=== PATIENT | female | born 1970 | race American Indian/Alaskan Native ===

== ENCOUNTER 2018-01-27 12:55 | Inpatient (IN) | payer SELFPAY ==
[2018-01-27] MEDS ORDERED: ASPIRIN PO ONE (13:08)
[2018-01-27 13:40] LABS: Basophils % (Auto) 0.3 % (0.0-1.8); Hematocrit 37.2 % (30.3-42.9); Hemoglobin 12.3 gm/dl (10.1-14.3); Lymphocytes # (Auto) 0.9 K/mm3 (1.2-5.4); Lymphocytes % (Auto) 6.7 % (13.4-35.0); Mean Corpuscular HGB Conc 33 % (30-34); Mean Corpuscular Hemoglobin 27 pg (28-32); Mean Corpuscular Volume 80 fl (79-97); Monocytes # (Auto) 0.7 K/mm3 (0.0-0.8); Monocytes % (Auto) 4.9 % (0.0-7.3); Platelet Count 198 K/mm3 (140-440); Red Blood Count 4.66 M/mm3 (3.65-5.03); Red Cell Distribution Width 14.7 % (13.2-15.2)
[2018-01-27 13:52] LABS: BUN/Creatinine Ratio 25; Blood Urea Nitrogen 15 mg/dL (7-17); Calcium 8.4 mg/dL (8.4-10.2); Hemolysis Index 14
[2018-01-27] MEDS ORDERED: NACL 0.9% 1000 ML 1,000 ML IV ONE ×2 (14:28→19:29)
[2018-01-27 15:08] LABS: Creatine Kinase MB < 1.0 ng/mL (0.0-4.0)
[2018-01-27 15:14] LABS: Free T4 (Free Thyroxine) 1.25 ng/dL (0.76-1.46)
--- NOTE | 2018-01-27 15:17 | Cat Scan Report ---
CT HEAD WITHOUT CONTRAST INDICATION: Headache. COMPARISON: None similar at this institution. FINDINGS: Noncontrast head CT demonstrates normal ventricles and sulci without acute or recent infarct, hemorrhage, mass effect or midline shift. No abnormal extra-axial fluid collections. Posterior fossa structures and basilar cisterns appear within normal limits. Symmetric eye globes. Mild left sphenoid sinus mucosal thickening. Clear remainder imaged paranasal sinuses and mastoid air cells. Intact calvarium. Normal overlying scalp soft tissues. Multiple radiopaque dental material incidentally noted. Approximately 2.7 x 1.6 cm nasopharyngeal soft tissues may also be directly visualized. CONCLUSION: No acute intracranial CT abnormality with mild left sphenoid sinus disease, as described. Please correlate. Thank you for the opportunity to participate in this patient's care.
--- NOTE | 2018-01-27 15:49 | Emergency Department Report ---
HPI - General Chief Complaint: Weakness Time Seen by Provider: 01/27/18 14:12 - HPI HPI: Room 26 The patient is a 47-year-old female presents with chief complaint weakness. The patient states this morning at 02:002 week and with nausea and vomiting. States is 05:30 she developed chills and pain in the right upper extremity described as a "hurt" which lasted for hours. The patient states her right thumb, middle finger and index finger became numb as well. At 09:30 the patient states she became diaphoretic and weak. The patient far department for evaluation and found she did not have enough energy to walk. The patient was then transported to the ED. The patient states she still feels weak. Patient denied chest pain or shortness of breath. Patient states she's had a headache for the last 2 days as worsened since last night. Patient states she's never had a stress test or cardiac catheterization. The patient is a headache a score 4/10. ED Past Medical Hx - Past Medical History Hx Diabetes: Yes (BOARDERLINE) - Surgical History Additional Surgical History: GASTRIC SLEEVE - Social History Smoking Status: Never Smoker Substance Use Type: None - Medications Home Medications: Home Medications Medication Instructions Recorded Confirmed Last Taken Type No Known Home Medications [No 01/27/18 01/27/18 Unknown History Reported Home Medications] ED Review of Systems ROS: Stated complaint: WEAK/DIZZY Other details as noted in HPI Physical Exam - Physical Exam Vital Signs: Vital Signs 01/27/18 01/27/18 13:03 14:04 Temperature 98.9 F Pulse Rate 98 H Respiratory 19 12 Rate Blood Pressure 92/63 O2 Sat by Pulse 96 Oximetry ED Course Vital Signs 01/27/18 01/27/18 13:03 14:04 Temperature 98.9 F Pulse Rate 98 H Respiratory 19 12 Rate Blood Pressure 92/63 O2 Sat by Pulse 96 Oximetry ED Medical Decision Making - Lab Data Result diagrams: 01/27/18 13:30 01/27/18 13:30 - Radiology Data Radiology results: report reviewed (CT head), image reviewed (CT head, chest x- ray) interpreted by me: Chest x-ray-no focal infiltrates, no pneumothorax [facility] [address] [place] [address] Cat Scan Report Signed Patient: JUVENAL LOREDO MR#: [id number] : 1970 Acct:[id number] Age/Sex: 47 / F ADM Date: 01/27/18 Loc: ED Attending Dr: Ordering Physician: PAULINE ARAMBULA MD Date of Service: 01/27/18 Procedure(s): CT head/brain wo con Accession Number(s): [id number] cc: PAULINE ARAMBULA MD CT HEAD WITHOUT CONTRAST INDICATION: Headache. COMPARISON: None similar at this institution. FINDINGS: Noncontrast head CT demonstrates normal ventricles and sulci without acute or recent infarct, hemorrhage, mass effect or midline shift. No abnormal extra-axial fluid collections. Posterior fossa structures and basilar cisterns appear within normal limits. Symmetric eye globes. Mild left sphenoid sinus mucosal thickening. Clear remainder imaged paranasal sinuses and mastoid air cells. Intact calvarium. Normal overlying scalp soft tissues. Multiple radiopaque dental material incidentally noted. Approximately 2.7 x 1.6 cm nasopharyngeal soft tissues may also be directly visualized. CONCLUSION: No acute intracranial CT abnormality with mild left sphenoid sinus disease, as described. Please correlate. Thank you for the opportunity to participate in this patient's care. Transcribed By: RS Dictated By: FLAVIO MULLER MD Electronically Authenticated By: FLAVIO MULLER MD Signed Date/Time: 01/27/18 1511 DD/ 1509 TD/TT: 01/27/18 1511 - Differential Diagnosis anginal equivalent, ACS, hypothyroidism,Electrolyte imbalance, ICH Critical care attestation.: If time is entered above; I have spent that time in minutes in the direct care of this critically ill patient, excluding procedure time. ED Disposition Clinical Impression: Weakness, Equivalent angina Disposition: OP ADMIT IP TO THIS HOSP Is pt being admited?: Yes Does the pt Need Aspirin: Yes Condition: Fair Instructions: Angina (ED) Referrals: PRIMARY CARE, [Primary Care Provider] - 3-5 Days Time of Disposition: 15:55 (hospitalist notified (Dr Ferreira))
[2018-01-27] MEDS ORDERED: NORCO 5/325 PO ONE (15:55)
--- NOTE | 2018-01-27 17:34 | XRay Report ---
FINAL REPORT EXAM: XR CHEST 1V AP HISTORY: equivalent angina TECHNIQUE: Frontal portable examination of the chest PRIORS: None FINDINGS: There is no visible pulmonary consolidation, pleural effusion, or pneumothorax. Cardiac silhouette size is normal without vascular congestion. No visible acute displaced fracture in the regional skeleton. Bilateral shoulder degenerative change. IMPRESSION: No acute cardiopulmonary disease in the visualized chest
--- NOTE | 2018-01-27 21:27 | History and Physical Report ---
History of Present Illness Date of examination: 01/27/18 Date of admission: 01/27/2018 Chief complaint: Chief complaint: Nausea vomiting and right-sided chest pain History of present illness: HARPER: 47-year-old -[place] female with no significant past medical history and possible borderline diabetes comes in for nausea and vomiting since a.m. She developed chills and pain in the right upper extremity. Right upper extremity numbness. Patient became diaphoretic and weak. Patient was hypotensive in the emergency room with a blood pressure about 80/50. Patient vomited about 2 times per morning. Some epigastric discomfort present. Also some diaphoresis. Past Medical History Hx Diabetes: Yes (BORDERLINE) Surgical History Additional Surgical History: GASTRIC SLEEVE Social History Smoking Status: Never Smoker Substance Use Type: None Family history htn Medications Home Medications: Home Medications Medication Instructions Recorded Confirmed Last Taken Type No Known Home Medications [No 01/27/18 01/27/18 Unknown History Reported Home Medications] Medications and Allergies Allergies Allergy/AdvReac Type Severity Reaction Status Date / Time melon Allergy Itching Verified 01/27/18 13:03 ragweed pollen Allergy Itching Verified 01/27/18 13:03 Home Medications Medication Instructions Recorded Confirmed Last Taken Type No Known Home Medications [No 01/27/18 01/27/18 Unknown History Reported Home Medications] Review of Systems All systems: negative Constitutional: no weight loss, no weight gain, no fever, no chills, no sweats, no night sweats Ears, nose, mouth and throat: no sore throat, no swelling in mouth, no swelling in throat, no odynophagia Breasts: deferred Cardiovascular: lightheadedness, no chest pain, no orthopnea, no palpitations, no rapid/irregular heart beat, no edema, no syncope, no shortness of breath, no dyspnea on exertion Respiratory: no cough, no cough with sputum, no excessive sputum, no hemoptysis , no shortness of breath, no dyspnea on exertion Gastrointestinal: nausea, vomiting, no abdominal pain, no diarrhea, no constipation, no change in bowel habits, no hematemesis, no coffee ground emesis , no BRBPR, no melena, no hematochezia, no loss of appetite, no early satiety, no heartburn, no indigestion, no belching, no excessive gas, no jaundice, no dyspepsia/bloating, no early satiety, no lactose intolerance, no other Genitourinary Female: no menorrhagia, no dysuria, no urinary frequency, no urgency, no stress incontinence, no post void dribbling Rectal: no pain Musculoskeletal: no neck stiffness, no neck pain, no shooting arm pain, no arm numbness/tingling, no low back pain, no shooting leg pain, no leg numbness/ tingling, no redness of joints Integumentary: no rash, no pruritis, no redness, no sores, no wounds, no jaundice, no boils, no blisters Neurological: no seizures, no syncope Psychiatric: no anxiety, no memory loss, no change in sleep habits, no sleep disturbances, no insomnia, no hypersomnia, no change in appetite, no change in libido, no suicidal ideation, no disorientation, no hallucinations Endocrine: no cold intolerance, no heat intolerance, no polyphagia, no excessive thirst, no polydipsia, no polyuria, no nocturia Hematologic/Lymphatic: no easy bruising, no easy bleeding Allergic/Immunologic: no urticaria, no allergic rhinitis, no wheezing Exam - Physical Exam Narrative exam: Lying in bed comfortably - Constitutional Vitals: Temp Pulse Resp BP Pulse Ox 98.9 F 76 13 101/60 100 01/27/18 13:03 01/27/18 20:30 01/27/18 20:30 01/27/18 20:30 01/27/18 20:30 General appearance: Present: no acute distress, well-nourished - EENT Eyes: Present: PERRL ENT: hearing intact, clear oral mucosa - Neck Neck: Present: supple, normal ROM - Respiratory Respiratory effort: normal Respiratory: bilateral: CTA - Cardiovascular Heart rate: 80 Rhythm: regular Heart Sounds: Present: S1 & S2. Absent: rub, click - Extremities Extremities: no ischemia, pulses intact, pulses symmetrical, No edema Peripheral Pulses: within normal limits - Abdominal General gastrointestinal: Present: soft, non-tender, non-distended, normal bowel sounds Female genitourinary: Present: normal - Integumentary Integumentary: Present: clear, warm, dry - Musculoskeletal Musculoskeletal: gait normal, strength equal bilaterally - Psychiatric Psychiatric: appropriate mood/affect, intact judgment & insight - Neurologic Neurologic: CNII-XII intact, moves all extremities - Allied Health Allied health notes reviewed: nursing, case management Results - Labs CBC & Chem 7: 01/27/18 13:30 01/27/18 13:30 Labs: Laboratory Last Values WBC 13.5 K/mm3 (4.5-11.0) H 01/27/18 13:30 RBC 4.66 M/mm3 (3.65-5.03) 01/27/18 13:30 Hgb 12.3 gm/dl (10.1-14.3) 01/27/18 13:30 Hct 37.2 % (30.3-42.9) 01/27/18 13:30 MCV 80 fl (79-97) 01/27/18 13:30 MCH 27 pg (28-32) L 01/27/18 13:30 MCHC 33 % (30-34) 01/27/18 13:30 RDW 14.7 % (13.2-15.2) 01/27/18 13:30 Plt Count 198 K/mm3 (140-440) 01/27/18 13:30 Lymph % (Auto) 6.7 % (13.4-35.0) L 01/27/18 13:30 [place] % (Auto) 4.9 % (0.0-7.3) 01/27/18 13:30 Eos % (Auto) 0.0 % (0.0-4.3) 01/27/18 13:30 Baso % (Auto) 0.3 % (0.0-1.8) 01/27/18 13:30 Lymph # 0.9 K/mm3 (1.2-5.4) L 01/27/18 13:30 [place] # 0.7 K/mm3 (0.0-0.8) 01/27/18 13:30 Eos # 0.0 K/mm3 (0.0-0.4) 01/27/18 13:30 Baso # 0.0 K/mm3 (0.0-0.1) 01/27/18 13:30 Seg Neutrophils % 88.1 % (40.0-70.0) H 01/27/18 13:30 Seg Neutrophils # 11.9 K/mm3 (1.8-7.7) H 01/27/18 13:30 Sodium 139 mmol/L (137-145) 01/27/18 13:30 Potassium 3.7 mmol/L (3.6-5.0) 01/27/18 13:30 Chloride 102.1 mmol/L (98-107) 01/27/18 13:30 Carbon Dioxide 24 mmol/L (22-30) 01/27/18 13:30 Anion Gap 17 mmol/L 01/27/18 13:30 BUN 15 mg/dL (7-17) 01/27/18 13:30 Creatinine 0.6 mg/dL (0.7-1.2) L 01/27/18 13:30 Estimated GFR > 60 ml/min 01/27/18 13:30 BUN/Creatinine Ratio 25 % 01/27/18 13:30 Glucose 153 mg/dL (65-100) H 01/27/18 13:30 Calcium 8.4 mg/dL (8.4-10.2) 01/27/18 13:30 Total Creatine Kinase 55 units/L (30-135) 01/27/18 14:36 CK-MB (CK-2) < 1.0 ng/mL (0.0-4.0) 01/27/18 14:36 CK-MB (CK-2) Rel Index 1.8 (0-4) 01/27/18 14:36 Troponin T < 0.010 ng/mL (0.00-0.029) 01/27/18 18:51 TSH 0.720 mlU/mL (0.270-4.200) 01/27/18 14:36 Free T4 1.25 ng/dL (0.76-1.46) 01/27/18 14:36 - Imaging and Cardiology EKG: report reviewed (normal sinus rhythm. ) CT Scan - head: report reviewed (no acute findings) Imaging and Cardiology: Chest x-ray: FINDINGS: There is no visible pulmonary consolidation, pleural effusion, or pneumothorax. Cardiac silhouette size is normal without vascular congestion. No visible acute displaced fracture in the regional skeleton. Bilateral shoulder degenerative change. IMPRESSION: No acute cardiopulmonary disease in the visualized chest Assessment and Plan Advance Directives: Yes (full code) VTE prophylaxis?: Chemical Plan of care discussed with patient/family: Yes - Patient Problems (1) Hypotension Current Visit: Yes Status: Acute Qualifiers: Hypotension type: unspecified hypotension type Qualified Code(s): I95.9 - Hypotension, unspecified Plan to address problem: Hypertension probably secondary to volume loss because of acute gastritis IV fluids for now (2) Acute gastritis Current Visit: Yes Status: Acute Qualifiers: Gastritis type: unspecified gastritis Plan to address problem: IV Protonix for now (3) Equivalent angina Current Visit: Yes Status: Acute Plan to address problem: Troponin and Lexiscan in the morning (4) DVT prophylaxis Current Visit: Yes Status: Acute Plan to address problem: Heparin
[2018-01-27] MEDS ORDERED: SODIUM CHLORIDE FLUSH SYRINGE 10 ML IV PRN (21:31)
[2018-01-27] MEDS ORDERED: TYLENOL PO PRN (21:31)
[2018-01-27] MEDS ORDERED: MOTRIN PO PRN (21:31)
[2018-01-27] MEDS ORDERED: MORPHINE IV PRN (21:31)
[2018-01-27] MEDS ORDERED: REGLAN IV PRN (21:31)
[2018-01-27] MEDS ORDERED: ZOFRAN IV PRN (21:31)
[2018-01-27 21:36] LABS: Bilirubin,Urine NEG (Negative); Blood,Urine NEG (Negative); Color,Urine Yellow (Yellow); Mucus,Urine FEW /HPF; Protein,Urine <15 mg/dL mg/dL (Negative); Urobilinogen,Urine < 2.0 mg/dL (<2.0)
[2018-01-27] MEDS ORDERED: TYLENOL ONE ×2 (23:44→23:47)
[2018-01-27] MEDS: PROTONIX IV SCH (23:51)
[2018-01-27] MEDS: SODIUM CHLORIDE FLUSH SYRINGE 10 ML IV SCH (23:51)
[2018-01-28] MEDS ORDERED: HEPARIN ONE (00:29)
[2018-01-28] MEDS: HEPARIN SUB-Q SCH ×3 (00:40→21:18)
[2018-01-28] MEDS: NACL 0.9% 1000 ML 1,000 ML IV SCH ×2 (01:38→12:32)
[2018-01-28 04:27] LABS: Basophils % (Auto) 0.3 % (0.0-1.8); Eosinophils # (Auto) 0.1 K/mm3 (0.0-0.4); Eosinophils % (Auto) 1.1 % (0.0-4.3); Hematocrit 34.9 % (30.3-42.9); Hemoglobin 11.5 gm/dl (10.1-14.3); Lymphocytes # (Auto) 2.8 K/mm3 (1.2-5.4); Lymphocytes % (Auto) 25.4 % (13.4-35.0); Mean Corpuscular HGB Conc 33 % (30-34); Mean Corpuscular Hemoglobin 27 pg (28-32); Mean Corpuscular Volume 81 fl (79-97); Monocytes # (Auto) 0.6 K/mm3 (0.0-0.8); Monocytes % (Auto) 5.4 % (0.0-7.3); Platelet Count 183 K/mm3 (140-440); Red Blood Count 4.33 M/mm3 (3.65-5.03); Red Cell Distribution Width 14.7 % (13.2-15.2)
[2018-01-28 04:53] LABS: Alanine Aminotransferase 15 units/L (7-56); Albumin 2.9 g/dL (3.9-5); BUN/Creatinine Ratio 20; Blood Urea Nitrogen 10 mg/dL (7-17); Calcium 7.6 mg/dL (8.4-10.2); Hemolysis Index 0
[2018-01-28] MEDS ORDERED: LEXISCAN IV ONE ×2 (09:23→09:28)
[2018-01-28] MEDS: PROTONIX IV SCH (10:00)
--- NOTE | 2018-01-28 10:24 | Progress Note ---
<JAM NUÑEZ - Last Filed: 01/28/18 15:17> Assessment and Plan Assessment and plan: Patient is a 47-year-old -Spanish female who was admitted for hypotension, weakness and epigastric discomfort. Hypotension BP has improved, continue IVF, Hypertension probably secondary to volume loss because of acute gastritis Right Arm pain and weakness Upper extremity Doppler ordered Right Knee pain x-ray results are pending Acute gastritis IV Protonix for now Equivalent angina Troponins have been negative, Lexiscan results pending DVT prophylaxis Heparin History Interval history: Patient was seen and examined. She is feeling better compared to yesterday, complains of headache and right knee pain. Labs and nursing notes reviewed. Hospitalist Physical - Constitutional Vitals: Temp Pulse Resp BP Pulse Ox 98.2 F 80 20 91/59 95 01/28/18 07:43 01/28/18 07:43 01/28/18 07:43 01/28/18 07:43 01/28/18 07:43 General appearance: Present: no acute distress, well-nourished - EENT Eyes: Present: PERRL, EOM intact ENT: hearing intact, clear oral mucosa - Neck Neck: Present: supple, normal ROM - Respiratory Respiratory effort: normal Respiratory: bilateral: CTA - Cardiovascular Rhythm: regular Heart Sounds: Present: S1 & S2 - Extremities Extremities: no ischemia, No edema - Abdominal General gastrointestinal: soft, non-tender, non-distended - Integumentary Integumentary: Present: clear, warm, dry - Psychiatric Psychiatric: appropriate mood/affect, intact judgment & insight, cooperative - Neurologic Neurologic: CNII-XII intact, moves all extremities Results - Labs CBC & Chem 7: 01/28/18 03:48 01/28/18 03:48 Labs: Laboratory Last Values WBC 10.9 K/mm3 (4.5-11.0) 01/28/18 03:48 RBC 4.33 M/mm3 (3.65-5.03) 01/28/18 03:48 Hgb 11.5 gm/dl (10.1-14.3) 01/28/18 03:48 Hct 34.9 % (30.3-42.9) 01/28/18 03:48 MCV 81 fl (79-97) 01/28/18 03:48 MCH 27 pg (28-32) L 01/28/18 03:48 MCHC 33 % (30-34) 01/28/18 03:48 RDW 14.7 % (13.2-15.2) 01/28/18 03:48 Plt Count 183 K/mm3 (140-440) 01/28/18 03:48 Lymph % (Auto) 25.4 % (13.4-35.0) 01/28/18 03:48 [place] % (Auto) 5.4 % (0.0-7.3) 01/28/18 03:48 Eos % (Auto) 1.1 % (0.0-4.3) 01/28/18 03:48 Baso % (Auto) 0.3 % (0.0-1.8) 01/28/18 03:48 Lymph # 2.8 K/mm3 (1.2-5.4) 01/28/18 03:48 [place] # 0.6 K/mm3 (0.0-0.8) 01/28/18 03:48 Eos # 0.1 K/mm3 (0.0-0.4) 01/28/18 03:48 Baso # 0.0 K/mm3 (0.0-0.1) 01/28/18 03:48 Seg Neutrophils % 67.8 % (40.0-70.0) 01/28/18 03:48 Seg Neutrophils # 7.4 K/mm3 (1.8-7.7) 01/28/18 03:48 Sodium 140 mmol/L (137-145) 01/28/18 03:48 Potassium 3.8 mmol/L (3.6-5.0) 01/28/18 03:48 Chloride 105.7 mmol/L (98-107) 01/28/18 03:48 Carbon Dioxide 25 mmol/L (22-30) 01/28/18 03:48 Anion Gap 13 mmol/L 01/28/18 03:48 BUN 10 mg/dL (7-17) 01/28/18 03:48 Creatinine 0.5 mg/dL (0.7-1.2) L 01/28/18 03:48 Estimated GFR > 60 ml/min 01/28/18 03:48 BUN/Creatinine Ratio 20 % 01/28/18 03:48 Glucose 85 mg/dL (65-100) 01/28/18 03:48 Hemoglobin A1c 5.8 % (4-6) 01/27/18 21:37 Calcium 7.6 mg/dL (8.4-10.2) L 01/28/18 03:48 Total Bilirubin 0.20 mg/dL (0.1-1.2) 01/28/18 03:48 AST 12 units/L (5-40) 01/28/18 03:48 ALT 15 units/L (7-56) 01/28/18 03:48 Alkaline Phosphatase 44 units/L (35-129) 01/28/18 03:48 Total Creatine Kinase 55 units/L (30-135) 01/27/18 14:36 CK-MB (CK-2) < 1.0 ng/mL (0.0-4.0) 01/27/18 14:36 CK-MB (CK-2) Rel Index 1.8 (0-4) 01/27/18 14:36 Troponin T < 0.010 ng/mL (0.00-0.029) 01/28/18 03:48 Total Protein 5.8 g/dL (6.3-8.2) L 01/28/18 03:48 Albumin 2.9 g/dL (3.9-5) L 01/28/18 03:48 Albumin/Globulin Ratio 1.0 % 01/28/18 03:48 TSH 0.720 mlU/mL (0.270-4.200) 01/27/18 14:36 Free T4 1.25 ng/dL (0.76-1.46) 01/27/18 14:36 Urine Color Yellow (Yellow) 01/27/18 21:20 Urine Turbidity Clear (Clear) 01/27/18 21:20 Urine pH 5.0 (5.0-7.0) 01/27/18 21:20 Ur Specific [place] 1.018 (1.003-1.030) 01/27/18 21:20 Urine Protein <15 mg/dl mg/dL (Negative) 01/27/18 21:20 Urine Glucose (UA) Neg mg/dL (Negative) 01/27/18 21:20 Urine Ketones Neg mg/dL (Negative) 01/27/18 21:20 Urine Blood Neg (Negative) 01/27/18 21:20 Urine Nitrite Neg (Negative) 01/27/18 21:20 Urine Bilirubin Neg (Negative) 01/27/18 21:20 Urine Urobilinogen < 2.0 mg/dL (<2.0) 01/27/18 21:20 Ur Leukocyte Esterase Neg (Negative) 01/27/18 21:20 Urine WBC (Auto) 1.0 /HPF (0.0-6.0) 01/27/18 21:20 Urine RBC (Auto) 3.0 /HPF (0.0-6.0) 01/27/18 21:20 Urine Mucus Few /HPF 01/27/18 21:20 <SUKH NAJERA - Last Filed: 01/28/18 23:05> Assessment and Plan Assessment and plan: I saw and evaluated the patient. I agree with the findings and the plan of care as documented in the PA's~note, with the following corrections and additions. Patient seen and examined, reports improvement. Reports sinus pain. Noted headache rates a 3/10 in intensity. no blurry vision. likely viral syndrome now resolving. will monitor 24 hrs and anticipate discharge in am if clinically stable Hospitalist Physical - Constitutional Vitals: Temp Pulse Resp BP Pulse Ox 98.3 F 87 18 90/54 97 01/28/18 19:57 01/28/18 19:57 01/28/18 19:57 01/28/18 19:57 01/28/18 19:57 Results - Labs CBC & Chem 7: 01/28/18 03:48 01/28/18 03:48 Labs: Laboratory Last Values WBC 10.9 K/mm3 (4.5-11.0) 01/28/18 03:48 RBC 4.33 M/mm3 (3.65-5.03) 01/28/18 03:48 Hgb 11.5 gm/dl (10.1-14.3) 01/28/18 03:48 Hct 34.9 % (30.3-42.9) 01/28/18 03:48 MCV 81 fl (79-97) 01/28/18 03:48 MCH 27 pg (28-32) L 01/28/18 03:48 MCHC 33 % (30-34) 01/28/18 03:48 RDW 14.7 % (13.2-15.2) 01/28/18 03:48 Plt Count 183 K/mm3 (140-440) 01/28/18 03:48 Lymph % (Auto) 25.4 % (13.4-35.0) 01/28/18 03:48 [place] % (Auto) 5.4 % (0.0-7.3) 01/28/18 03:48 Eos % (Auto) 1.1 % (0.0-4.3) 01/28/18 03:48 Baso % (Auto) 0.3 % (0.0-1.8) 01/28/18 03:48 Lymph # 2.8 K/mm3 (1.2-5.4) 01/28/18 03:48 [place] # 0.6 K/mm3 (0.0-0.8) 01/28/18 03:48 Eos # 0.1 K/mm3 (0.0-0.4) 01/28/18 03:48 Baso # 0.0 K/mm3 (0.0-0.1) 01/28/18 03:48 Seg Neutrophils % 67.8 % (40.0-70.0) 01/28/18 03:48 Seg Neutrophils # 7.4 K/mm3 (1.8-7.7) 01/28/18 03:48 Sodium 140 mmol/L (137-145) 01/28/18 03:48 Potassium 3.8 mmol/L (3.6-5.0) 01/28/18 03:48 Chloride 105.7 mmol/L (98-107) 01/28/18 03:48 Carbon Dioxide 25 mmol/L (22-30) 01/28/18 03:48 Anion Gap 13 mmol/L 01/28/18 03:48 BUN 10 mg/dL (7-17) 01/28/18 03:48 Creatinine 0.5 mg/dL (0.7-1.2) L 01/28/18 03:48 Estimated GFR > 60 ml/min 01/28/18 03:48 BUN/Creatinine Ratio 20 % 01/28/18 03:48 Glucose 85 mg/dL (65-100) 01/28/18 03:48 Hemoglobin A1c 5.8 % (4-6) 01/27/18 21:37 Calcium 7.6 mg/dL (8.4-10.2) L 01/28/18 03:48 Total Bilirubin 0.20 mg/dL (0.1-1.2) 01/28/18 03:48 AST 12 units/L (5-40) 01/28/18 03:48 ALT 15 units/L (7-56) 01/28/18 03:48 Alkaline Phosphatase 44 units/L (35-129) 01/28/18 03:48 Total Creatine Kinase 55 units/L (30-135) 01/27/18 14:36 CK-MB (CK-2) < 1.0 ng/mL (0.0-4.0) 01/27/18 14:36 CK-MB (CK-2) Rel Index 1.8 (0-4) 01/27/18 14:36 Troponin T < 0.010 ng/mL (0.00-0.029) 01/28/18 11:12 Total Protein 5.8 g/dL (6.3-8.2) L 01/28/18 03:48 Albumin 2.9 g/dL (3.9-5) L 01/28/18 03:48 Albumin/Globulin Ratio 1.0 % 01/28/18 03:48 TSH 0.720 mlU/mL (0.270-4.200) 01/27/18 14:36 Free T4 1.25 ng/dL (0.76-1.46) 01/27/18 14:36 Urine Color Yellow (Yellow) 01/27/18 21:20 Urine Turbidity Clear (Clear) 01/27/18 21:20 Urine pH 5.0 (5.0-7.0) 01/27/18 21:20 Ur Specific [place] 1.018 (1.003-1.030) 01/27/18 21:20 Urine Protein <15 mg/dl mg/dL (Negative) 01/27/18 21:20 Urine Glucose (UA) Neg mg/dL (Negative) 01/27/18 21:20 Urine Ketones Neg mg/dL (Negative) 01/27/18 21:20 Urine Blood Neg (Negative) 01/27/18 21:20 Urine Nitrite Neg (Negative) 01/27/18 21:20 Urine Bilirubin Neg (Negative) 01/27/18 21:20 Urine Urobilinogen < 2.0 mg/dL (<2.0) 01/27/18 21:20 Ur Leukocyte Esterase Neg (Negative) 01/27/18 21:20 Urine WBC (Auto) 1.0 /HPF (0.0-6.0) 01/27/18 21:20 Urine RBC (Auto) 3.0 /HPF (0.0-6.0) 01/27/18 21:20 Urine Mucus Few /HPF 01/27/18 21:20
[2018-01-28] MEDS: SODIUM CHLORIDE FLUSH SYRINGE 10 ML IV SCH ×2 (12:32→21:19)
[2018-01-28] MEDS: FLONASE NS SCH (17:00)
[2018-01-28] MEDS: PROTONIX PO SCH (21:18)
--- NOTE | 2018-01-28 22:02 | XRay Report ---
FINAL REPORT EXAM: XR KNEE 1-2V RT HISTORY: right knee pain TECHNIQUE: Frontal and lateral views of right knee. PRIORS: None. FINDINGS: Variable degenerative changes in all 3 joint compartments, most pronounced in the medial and patellofemoral joint spaces. Probable small, intra-articular osteocartilaginous body noted in the mid anterior joint compartment. No apparent fracture or dislocation. Soft tissues grossly unremarkable. IMPRESSION: 1. No acute osseous abnormality. 2. Degenerative changes.
--- NOTE | 2018-01-29 08:15 | Discharge Summary ---
Providers - Providers Date of Admission: 01/27/18 21:31 Attending physician: SUKH NAJERA MD 01/28/18 10:25 Consult to Dietitian/Nutrition [CONS] Routine Physician Instructions: Reason For Exam: Reason for Consult: Malnutrition Primary care physician: [employer]ING TECHNICIAN Hospitalization Reason for admission: VIRAL SYNDROM Condition: Stable Hospital course: Patient is a 47-year-old -[place] female who was admitted for hypotension, weakness and epigastric discomfort. Patient reported rapid onset of fever the day prior to admission which has since improved. patient also reported sinus pain which she was started on Flonase with improvement. she had a stress test which was negative and today is stable for discharge with no further symptoms. Hypotension Right Arm pain and weakness Right Knee pain Acute gastritis Atypical chest pain likely costonchdirits Viral syndrom Sinus headache with sinusitis Disposition: TO HOME OR SELFCARE Time spent for discharge: 35 MINS Core Measure Documentation - Palliative Care Palliative Care/ Comfort Measures: Not Applicable - Core Measures Any of the following diagnoses?: none - VTE Discharge Requirements Deep Vein Thrombosis/Pulmonary Embolism Present on Admission: No Exam - Constitutional Vitals: Temp Pulse Resp BP Pulse Ox 97.8 F 80 16 127/74 100 01/29/18 04:48 01/29/18 06:00 01/29/18 04:48 01/29/18 04:48 01/29/18 00:52 General appearance: Present: no acute distress, well-nourished - EENT Eyes: Present: PERRL ENT: hearing intact - Neck Neck: Present: supple, normal ROM - Respiratory Respiratory effort: normal Respiratory: bilateral: CTA - Cardiovascular Rhythm: regular Heart Sounds: Present: S1 & S2 - Extremities Extremities: no ischemia, pulses intact, No edema, Full ROM Extremity abnormal: edema Peripheral Pulses: within normal limits - Abdominal General gastrointestinal: Present: soft, non-tender, non-distended, normal bowel sounds - Musculoskeletal Musculoskeletal: strength equal bilaterally - Psychiatric Psychiatric: appropriate mood/affect, intact judgment & insight, memory intact - Neurologic Neurologic: CNII-XII intact - Allied Health Allied health notes reviewed: nursing Plan Activity: advance as tolerated, fall precautions Diet: low cholesterol Special Instructions: record daily weights, record daily BP diary Follow up with: JOSEPH PEACOCK MD [Staff Physician] - 7 Days PRIMARY CARE, [Primary Care Provider] - 3-5 Days Forms: Work/School Release Form Prescriptions: Fluticasone [Flonase] 100 mcg NS QDAY #1 bottle Ibuprofen [Motrin 600 MG tab] 600 mg PO Q6H PRN #14 tablet PRN Reason: Pain, Mild (1-3)
[2018-01-29 09:50] VITALS: BP 104/70
[2018-01-29] MEDS: FLONASE NS SCH (09:51)
[2018-01-29] MEDS: SODIUM CHLORIDE FLUSH SYRINGE 10 ML IV SCH (09:52)
[2018-01-29] MEDS: HEPARIN SUB-Q SCH (09:52)
[2018-01-29] MEDS: PROTONIX PO SCH (09:52)
--- NOTE | 2018-01-29 12:58 | Treadmill Report ---
ORDERING PHYSICIAN: Ronnie Ferreira MD INDICATION FOR THE TEST: Chest pain. FINDINGS: This is a fair quality myocardial perfusion scan limited by inferior wall attenuation secondary to adjacent uptake noted in the bowels. There is also evidence of a vertical motion on stress imaging. There is no scintigraphic evidence of myocardial ischemia. The left ventricle is normal in size. The left ventricular ejection fraction is measured at 60%. There is normal wall motion and wall thickening on gated imaging. IMPRESSION: 1. A fair quality myocardial perfusion scan limited by increased uptake in the adjacent bowel loops as well as vertical motion noted on the stress imaging. 2. No convincing evidence of ischemia noted. 3. Normal left ventricular size with an ejection fraction measured at 60%. 4. This is a low risk myocardial perfusion scan associated with cardiovascular event rate of less than 1% in the next 1 year. JOB# [id number] SHAN/TEOFILO
== END 2018-01-29 12:07 | disposition home or self-care (01) | DRG 206 ==
LOC: EDSEX → ED 12:55 → 4A 21:31
PROVIDERS: ADMIT Internal Medicine; ATTEND Internal Medicine
DX: M94.0 Chondrocostal junction syndrome [Tietze] (principal); I95.9 Hypotension, unspecified; K29.00 Acute gastritis without bleeding; J32.9 Chronic sinusitis, unspecified
CPT/HCPCS: 36415; 70450; 71045; 78452; 80048; 80053; 81001; 82550; 82553; 83036; 84439; 84443; 84484; 85025; 93005; 93010; 93017; A9502; C9113; J1644; J2785; J7030